=== PATIENT | male | born 1980 | race Hispanic/Latino ===

== ENCOUNTER 2019-08-17 00:12 | Emergency (ER) | payer SELFPAY ==
--- NOTE | 2019-08-17 00:26 | EDM.PDOC ---
ED HPI GENERAL MEDICAL PROBLEM - General Chief Complaint: Upper Extremity Injury/Pain Stated Complaint: INJURY TO RIGHT PINKY Time Seen by Provider: 08/17/19 00:22 Source of Information: Reports: Patient History Limitations: Reports: No Limitations - History of Present Illness INITIAL COMMENTS - FREE TEXT/NARRATIVE: 39-year-old male presents with right pinky laceration on the palmar surface after falling on the basketball court 2 hours prior to arrival. He admits to pain with range of motion, pain is constant, nonradiating, exacerbated with range of motion. He drank 12 cans of beer to help alleviate his pain. Tetanus unknown. ROS: A 10-point review of systems, other than pertinent positives and negatives as stated per HPI, is otherwise negative PHYSICAL EXAM General: AOx4, GCS = 15, mild distress HEENT: dry mucous membrane Neck: supple, no meningismus, no Kernig or Brudzinski Cardiac: S1S2 tachycardia Respiratory: CTAB, no crackles or rales, no wheezing Abdomen: Soft, nontender, no rebound or guarding, nondistended, no pulsatile mass. Back: nontender Musculoskeletal: NVI distally, 2.7cm laceration to proximal phalanx of right pinky palmar surface. Nml strength and ROM on DIP/MCP/PIP joint. No active bleeding. Neuro: No focal deficits Right Finger-Little Pain Score (Numeric/FACES): 5 - Related Data Allergies Allergy/AdvReac Type Severity Reaction Status Date / Time No Known Allergies Allergy Verified 08/17/19 00:34 Home Meds: Home Meds . [No Known Home Meds] 08/17/19 [History] Review of Systems - Review of Systems Review Of Systems: Comprehensive ROS is negative, except as noted in HPI. ED EXAM, GENERAL - Physical Exam Exam: See Below (see dictation) ED TRAUMA EXTREMITY PROCEDURES - Laceration/Wound Repair Right Proximal Digit - 5th (Baby) Lac/Wound Length In cm: 2.7 Appearance: Superficial Distal NVT: Neuro & Vascular Intact, No Tendon Injury Anesthetic Type: Digital Local Anesthesia - Bupivicaine (Marcaine): 0.5% Plain Local Anesthetic Volume: 5cc Skin Prep: Saline Saline Irrigation (cc's): 20 Exploration/Debridement/Repair: Wound Explored, In a Bloodless Field, Explored to Base, No Foreign Material Found, Wound Margins Revised Closed With: Sutures, Other (5x 5-0 ethilon sutures placed in simple interrupted fashion) - Splinting Right 5th Digit Pre-Procedure NV Status: Normal Post-Procedure NV Status: Normal Splint Material: Aluminum-Foam Applied & Form Fitted By: Nurse Provider Post-Splint Application NV Check: NV Status Normal, Good Position Complications: No Progress/Comments: splint in position of comfort Course - Vital Signs Last Recorded V/S: Last Vital Signs Temp 97.2 F 08/17/19 00:29 Pulse 113 H 08/17/19 00:29 Resp 16 08/17/19 00:29 BP 143/89 H 08/17/19 00:29 Pulse Ox 98 08/17/19 00:29 - Orders/Labs/Meds Orders: Active Orders 24 hr Category Date Time Status Communication Order [RC] STAT Care 08/17/19 01:08 Active Vaccines to be Administered [RC] PER UNIT ROUTINE Care 08/17/19 01:09 Active Vaccines to be Administered [RC] PER UNIT ROUTINE Care 08/17/19 01:11 Active Meds: Medications Discontinued Medications Generic Name Dose Route Start Last Admin Trade Name Malcolm PRN Reason Stop Dose Admin Bupivacaine HCl Confirm 08/17/19 01:13 Sensorcaine-Mpf 0.5% Administered 08/17/19 01:14 Dose 10 ml .ROUTE .STK-MED ONE Diphtheria/Tetanus/Acell Pertussis 0.5 ml 08/17/19 01:11 Adacel IM 08/17/19 01:12 .ONCE ONE Lidocaine HCl 5 ml 08/17/19 00:57 Xylocaine-Mpf 1% INJECT 08/17/19 00:58 ONETIME ONE - Re-Assessments/Exams Free Text/Narrative Re-Assessment/Exam: 08/17/19 01:43 After treatments and a prolonged observation period in the ER, the patient improved clinically and is stable for discharge. I performed a repeat examination and the patient has not demonstrated any new abnormal findings. Patient exhibits normal vital signs and has exhibited a normal gait. I advised the patient to return to the ER for reevaluation if symptoms worsened, and to follow up with their PCP within 10 days for suture removal. MEDICAL DECISION MAKING: I reviewed the patients past medical records, lab and radiographic findings. I discussed the case with the patient. My differential diagnosis included: Finger laceration, fracture, tendon injury. I explored his laceration extensively to look for tendon injury, I do not think patient has tendon injury, he has normal range of motion at DIP joint, PIP joint, MCP joint at full strength. X-ray was negative for fracture. He was splinted at the position of comfort after suturing. He is stable for discharge. Departure - Departure Time of Disposition: 01:45 Disposition: Home, Self-Care 01 Condition: Good Clinical Impression: Finger laceration - Discharge Information *PRESCRIPTION DRUG MONITORING PROGRAM REVIEWED*: Not Applicable *COPY OF PRESCRIPTION DRUG MONITORING REPORT IN PATIENT JO-ANN: Not Applicable Instructions: Cast or Splint Care, Adult, [id number], Laceration Care, Adult Referrals: PCP,None [Primary Care Provider] - 2 Weeks Forms: ED Department Discharge Additional Instructions: The following information is given to patients seen in the emergency department who are being discharged to home. This information is to outline your options for follow-up care. We provide all patients seen in our emergency department with a follow-up referral. The need for follow-up, as well as the timing and circumstances, are variable depending upon the specifics of your emergency department visit. If you don't have a primary care physician on staff, we will provide you with a referral. We always advise you to contact your personal physician following an emergency department visit to inform them of the circumstance of the visit and for follow-up with them and/or the need for any referrals to a consulting specialist. The emergency department will also refer you to a specialist when appropriate. This referral assures that you have the opportunity for follow-up care with a specialist. All of these measure are taken in an effort to provide you with optimal care, which includes your follow-up. Under all circumstances we always encourage you to contact your private physician who remains a resource for coordinating your care. When calling for follow-up care, please make the office aware that this follow-up is from your recent emergency room visit. If for any reason you are refused follow-up, please contact the [facility] Emergency Department at and asked to speak to the emergency department charge nurse. If you do not have a primary care doctor, please follow up with the clinics in [address] [facility] [address] [place] [id number] [facility] [address] [place] [id number] Sepsis Event Note (ED) - Focused Exam Vital Signs: Vital Signs Temp Pulse Resp BP Pulse Ox 08/17/19 00:29 97.2 F 113 H 16 143/89 H 98 - My Orders Last 24 Hours: My Active Orders 08/17/19 01:08 Communication Order [RC] STAT 08/17/19 01:09 Vaccines to be Administered [RC] PER UNIT ROUTINE 08/17/19 01:11 Vaccines to be Administered [RC] PER UNIT ROUTINE - Assessment/Plan Last 24 Hours: My Active Orders 08/17/19 01:08 Communication Order [RC] STAT 08/17/19 01:09 Vaccines to be Administered [RC] PER UNIT ROUTINE 08/17/19 01:11 Vaccines to be Administered [RC] PER UNIT ROUTINE
[2019-08-17] MEDS ORDERED: Diphtheria,Pertussis(Acell),Tetanus Vaccine 0.5 ML Syringe IM ONE ×2 (01:08→01:11)
[2019-08-17] MEDS ORDERED: Bupivacaine 0.5% 10 ML SDV ONE (01:13)
--- NOTE | 2019-08-17 01:16 | CR ---
INDICATION: Pain, right pinky finger. COMPARISON: None. TECHNIQUE: Right pinky finger 3 views. FINDINGS: Linear lucency along the volar aspect of the base of the middle phalanx of the pinky finger could represent nondisplaced fracture on lateral view. Recommend correlation with point tenderness. Alignment is within normal limits. Joint spaces are maintained. Dictated by Zay Esquivel MD @ Aug 17 2019 1:12AM Signed by Dr. Zay Esquivel @ Aug 17 2019 1:14AM
== END 2019-08-17 02:25 | disposition home or self-care (01) ==
LOC: MW.ED 00:12
DX: S61.216A Laceration without foreign body of right little finger without damage to nail, initial encounter (principal); Z23 Encounter for immunization; W18.30XA Fall on same level, unspecified, initial encounter; Y92.240 Courthouse as the place of occurrence of the external cause; Y93.67 Activity, basketball
CPT/HCPCS: 12002; 73140; 90471; 90715; 99283; J3490; 29130; 99282